=== PATIENT | male | born 1970 | race Caucasian/White ===

== ENCOUNTER 2020-12-30 12:30 | Emergency (ER) | payer OTHER ==
[~2020-12-30] VITALS: Ht 182.9 cm; Wt 107.1 kg
--- NOTE | 2020-12-30 12:49 | PHYS DOC ---
Adult General Chief Complaint Chief Complaint: HYPERGLYCEMIA HPI HPI Patient is a 50-year-old male presenting for medication refill. He is a known [id number] type II diabetic and has been out of medications for past 1 week. Reports last hemoglobin A1c was 7.2% approximately [address] [place] he has had a new job and travels frequently and so, he has issues maintaining follow-up with his primary care. Nonetheless, he recently establish care with a local primary care provider and has plans to see them next week. Nonetheless, patient has been out of medication and has no one to prescribe his new medication for him. States he was seen at the [facility] last week with elevated blood glucose level. He has a glucometer at home and when checked today was found to be elevated at 350 concerning him enough to come in for evaluation. On arrival today, he has no major complaints. He states he takes glyburide 5 mg twice daily Review of Systems Review of Systems Fourteen body systems of review of systems have been reviewed. See HPI for pertinent positives and negative responses, other glover all other systems are negative, non-pertinent or non-contributory Physical Exam Physical Exam Constitutional: Well developed, well nourished, no acute distress, non-toxic appearance. HENT: Normocephalic, atraumatic, bilateral external ears normal, oropharynx moist, no oral exudates, nose normal. Eyes: PERRLA, EOMI, conjunctiva normal, no discharge. Neck: Normal range of motion, no tenderness, supple, no stridor. Cardiovascular: Heart rate regular, sinus rhythm, no murmurs rubs or gallops Lungs & Thorax: Bilateral breath sounds clear to auscultation Abdomen: Bowel sounds normal, soft, no tenderness, no masses, no pulsatile masses. Nonsurgical abdomen, no peritoneal signs Skin: Warm, dry, no erythema, no rash. Back: No tenderness, no CVA tenderness. Extremities: No tenderness, no cyanosis, no clubbing, ROM intact, no edema. Neurologic: Alert and oriented X 3, grossly normal motor & sensory function, no focal deficits noted. Psychologic: Affect normal, judgement normal, mood normal. Current Patient Data Vital Signs Vital Signs Date Time Temp Pulse Resp B/P (MAP) Pulse Ox O2 Delivery O2 Flow Rate FiO2 12/30/20 12:52 98.1 63 16 131/91 (104) 96 Room Air Vital Signs Date Time Temp Pulse Resp B/P (MAP) Pulse Ox O2 Delivery O2 Flow Rate FiO2 12/30/20 12:52 98.1 63 16 131/91 (104) 96 Room Air Lab Results Laboratory Tests Test 12/30/20 12:52 Glucose (Fingerstick) 321 mg/dL Current Medications Medications (Trade) Dose Ordered Sig/Felisha Route PRN Reason Start Time Stop Time Status Last Admin Dose Admin Glyburide (Diabeta) 5 mg 1X ONCE PO 12/30/20 13:30 12/30/20 13:31 UNV EKG EKG [] Radiology/Procedures Radiology/Procedures [] Heart Score C/O Chest Pain: No Risk Factors: Risk Factors: DM, Current or recent (<one month) smoker, HTN, HLP, family history of CAD, obesity. Risk Scores: Risk Factors: DM, Current or recent (<one month) smoker, HTN, HLP, family history of CAD, obesity. Course & Med Decision Making Course & Med Decision Making ABCs unremarkable HPI and comprehensive physical exam nonconcerning for any emergent or surgical issues No indication for further diagnostic ER workup, intervention, or hospitalization at this time Patient has elevated blood glucose level on arrival but no immediate concerns for HHS, DKA or other concerning abnormalities. He is simply here for medication refill I feel it is appropriate to prescribe is typically taken glyburide 5 mg twice daily as he has plans to see his primary care physician this upcoming week. Patient has a glucometer at home and is knowledgeable on his diabetes/care in a diabetic setting. Strict return precautions were discussed with understanding verbalized by patient. All questions and concerns addressed prior to ER depjesika Thorne Disclaimer Fadumo Disclaimer This electronic medical record was generated, in whole or in part, using a voice recognition dictation system. Departure Departure: Impression: Primary Impression: Hyperglycemia due to type 2 diabetes mellitus Additional Impression: Encounter for medication refill Disposition: HOME / SELF CARE / HOMELESS Condition: STABLE Referrals: PCP,SANDY (PCP) Patient Instructions: Hyperglycemia Additional Instructions: You were seen for hyperglycemia. You need to start taking your insulin/diabetes medications as prescribed and follow up with your primary care doctor as soon as possible. It is important for good glycemic control to reduce the risks of acute and chronic medical problems. Return to the ED if you develop any abdominal pain, vomiting, cough, chest pain, fever, or any other new or concerning symptoms. Scripts Glyburide (GLYBURIDE) 5 Mg Tablet 1 TAB PO BID for Diabetes, #60 TAB 1 Refill Prov: RADHA RIVAS DO 12/30/20 Problem Qualifiers RADHA RIVAS DO Dec 30, 2020 12:49
[2020-12-30 12:52] VITALS: BP 131/91
[2020-12-30] MEDS ORDERED: GLYB5TAB3 PO (13:19)
[2020-12-30] MEDS ORDERED: glyBURIDE 5 MG TABLET. PO ONE (13:30)
== END 2020-12-30 14:00 | disposition home or self-care (01) ==
LOC: ER 12:30
DX: E11.65 Type 2 diabetes mellitus with hyperglycemia (principal); Z76.0 Encounter for issue of repeat prescription
CPT/HCPCS: 82947; 99283